=== PATIENT | female | born 1985 | race Caucasian/White ===

== ENCOUNTER 2025-04-09 10:00 | Outpatient (CLI) | payer MEDICAID, SELFPAY ==
--- NOTE | 2025-04-09 10:15 | CRLHL7_ITS ---
For Patients: As a result of the Century Cures Act, medical imaging exams and procedure reports are released immediately into your electronic medical record. You may view this report before your referring provider. If you have questions, please contact your health care provider. INDICATION: Brain aneurysm. TECHNIQUE: Head MRA was performed with and without the administration of intravenous contrast. 3D reformatted images of the MRA were performed. IV contrast: 15 mL Dotare[employer]. 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 No evidence of residual aneurysm filling or enhancement. The intracranial internal carotid arteries are patent. The middle cerebral arteries are patent. The anterior cerebral arteries are patent. The vertebrobasilar system is patent. The posterior inferior cerebellar arteries are patent. The anterior inferior cerebellar arteries are patent. The superior cerebellar arteries are patent. The posterior cerebral arteries are patent. No high-grade stenosis or vascular malformation. Anatomic variations: None. IMPRESSION: 1. ACOM aneurysm embolization. No evidence of residual aneurysm filling or enhancement. 2. No large vessel occlusion or high-grade stenosis in the major intracranial arteries. Dictated by Sage Parry MD @ 04/09/2025 7:45:46 PM (Electronically Signed)
== END 2025-04-09 10:01 | disposition home or self-care (01) ==
PROVIDERS: PCP Neurological Surgery; Visit Provider Neurological Surgery
DX: I67.1 Cerebral aneurysm, nonruptured (principal)
CPT/HCPCS: 70546; A9575